=== PATIENT | male | born 1990 | race Caucasian/White ===

== ENCOUNTER 2023-07-22 17:01 | Inpatient (IN) | payer BC ==
[~2023-07-22] VITALS: Ht 175.3 cm; Wt 121.1 kg
[2023-07-22 17:26] VITALS: BP 96/67; PULSE 114; RESP 24; TEMP 99.2; O2SAT 98
[2023-07-22] MEDS: NACL 0.9% 1,000 ML IV SCH (18:41)
[2023-07-22 18:45] LABS: BASOPHILS % (AUTO) 0.1 % (0.0-2.0); HEMATOCRIT 33.2 % (36-52); HEMOGLOBIN 11.6 g/dL (12.0-18.0); LYMPHOCYTES # (AUTO) 0.9 K/uL (2.0-11.5); LYMPHOCYTES % (AUTO) 23.5 % (20.5-51.1); MEAN CORPUSCULAR HEMOGLOBIN 28 pg (27-31); MEAN CORPUSCULAR HGB CONC 35 g/dL (33-37); MEAN CORPUSCULAR VOLUME 78.9 fL (80-94); MONOCYTES # (AUTO) 0.4 K/uL (0.8-1.0); MONOCYTES % (AUTO) 9.6 % (1.7-9.3); NEUTROPHILS # (AUTO) 2.7 K/uL (1.8-7.7); NEUTROPHILS % (AUTO) 66.8 % (42.2-75.2); PLATELET COUNT (AUTO) 259 K/uL (140-450); RED CELL DISTRIBUTION WIDTH 13.1 % (11.6-13.7)
[2023-07-22 19:02] LABS: INR 1.15 (0.8-1.2); PARTIAL THROMBOPLASTIN TIME 31.4 secs (22-35.6)
[2023-07-22 19:19] LABS: ALBUMIN 2.9 g/dL (3.4-5.0); BILIRUBIN,DIRECT 0.1 mg/dL (0.0-0.3); TOTAL BILIRUBIN 0.4 mg/dL (0.0-1.0); TOTAL PROTEIN, SERUM 7.3 g/dL (6.4-8.2)
[2023-07-22 19:29] LABS: ANION GAP 13.2 (8-16); CARBON DIOXIDE 26.1 mmol/L (21-32); CREATININE 1.2 mg/dL (0.6-1.3); POTASSIUM 3.3 mmol/L (3.5-5.1)
[2023-07-22 19:51] LABS: CREATINE KINASE, TOTAL 916 U/L (39-308)
[2023-07-22 19:57] LABS: APPEARANCE,URINE CLEAR (CLEAR); BILIRUBIN,URINE 2+ (NEGATIVE); BLOOD, URINE NEGATIVE (NEGATIVE); LEUKOCYTE ESTERASE ,URINE TRACE (NEGATIVE); NITRITE, URINE POSITIVE (NEGATIVE); PH,URINE 6.5 (5.0-9.0); PROTEIN,URINE 2+ (NEGATIVE); UGLUCOSE TRACE (NEGATIVE); UROBILINOGEN,URINE 0.2 EU/dL (0.2 - 1)
[2023-07-22 19:58] LABS: COLOR,URINE ORANGE (YELLOW)
[2023-07-22 20:00] LABS: BACTERIA,URINE FEW /HPF (None Seen); ICTOTEST NEGATIVE (NEGATIVE); RBC,URINE 0-5 /HPF (0-5); SQUAMOUS EPITHELIAL CELL,UR 0-3 (FEW) /LPF (0-3 (FEW))
[2023-07-22] MEDS ORDERED: MORPHINE SULFATE 4 MG/ML SYR IVP PRN (21:20)
[2023-07-22] MEDS ORDERED: ACETAMINOPHEN 325 MG TAB PO PRN (21:20)
[2023-07-22] MEDS: DEXT 5% / NACL 0.45% 1,000 ML IV SCH (21:54)
[2023-07-22] MEDS: LEVOFLOXACIN 250 MG/D5 PREMIX 50 ML IV SCH (21:55)
[2023-07-22] MEDS ORDERED: METR-520 PO (22:39)
[2023-07-22] MEDS ORDERED: FLONAS NS (22:39)
[2023-07-22] MEDS ORDERED: ALBU3SOL28 IH (22:39)
[2023-07-22] MEDS ORDERED: LACT1CAP71 PO (22:39)
[2023-07-22 22:57] VITALS: PULSE 118
[2023-07-22 23:07] VITALS: BP 97/54; PULSE 100; RESP 20; TEMP 98.2; O2SAT 96
[2023-07-22 23:22] VITALS: PULSE 100; RESP 20; O2SAT 96
[2023-07-22 23:55] VITALS: PULSE 111
[2023-07-23] VITALS (7 sets, daily range): BP systolic 102–118; BP diastolic 64–69; PULSE 74–102; RESP 17–20; TEMP 98–99.7; O2SAT 95–98
[2023-07-23] MEDS: MELATONIN 3 MG TAB PO ONE (00:55)
[2023-07-23 05:47] LABS: BASOPHILS % (AUTO) 0.4 % (0.0-2.0); HEMATOCRIT 32.4 % (36-52); HEMOGLOBIN 11.2 g/dL (12.0-18.0); LYMPHOCYTES # (AUTO) 1.2 K/uL (2.0-11.5); LYMPHOCYTES % (AUTO) 29.2 % (20.5-51.1); MEAN CORPUSCULAR HEMOGLOBIN 27 pg (27-31); MEAN CORPUSCULAR HGB CONC 35 g/dL (33-37); MEAN CORPUSCULAR VOLUME 79.4 fL (80-94); MONOCYTES # (AUTO) 0.3 K/uL (0.8-1.0); MONOCYTES % (AUTO) 7.4 % (1.7-9.3); NEUTROPHILS # (AUTO) 2.7 K/uL (1.8-7.7); PLATELET COUNT (AUTO) 273 K/uL (140-450); RED BLOOD CELL COUNT(AUTO) 4.08 MIL/uL (4.20-6.10); RED CELL DISTRIBUTION WIDTH 13.2 % (11.6-13.7); WHITE BLOOD COUNT (AUTO) 4.2 K/uL (4.8-10.8)
[2023-07-23 06:19] LABS: ALBUMIN 2.8 g/dL (3.4-5.0); ANION GAP 12.6 (8-16); CALCIUM 8.1 mg/dL (8.5-10.1); CARBON DIOXIDE 26.7 mmol/L (21-32); CREATININE 1.1 mg/dL (0.6-1.3); POTASSIUM 3.3 mmol/L (3.5-5.1); TOTAL BILIRUBIN 0.4 mg/dL (0.0-1.0); TOTAL PROTEIN, SERUM 7.1 g/dL (6.4-8.2)
[2023-07-23] MEDS: POTASSIUM CHLORIDE 10 MEQ TABER PO PRN (09:12)
[2023-07-23] MEDS ORDERED: ONDANSETRON 4 MG/2 ML VIAL IVP PRN (10:50)
[2023-07-23] MEDS ORDERED: MAG SULF 2000 MG/WATER PREMIX 50 ML IV PRN (10:50)
[2023-07-23] MEDS ORDERED: LORazepam 2 MG/ML VIAL IVP PRN (10:50)
[2023-07-23] MEDS ORDERED: POTASSIUM CHLORIDE 10 MEQ TABER PO PRN (10:50)
[2023-07-23] MEDS: ZOLPIDEM 10 MG TAB PO PRN (22:35)
[2023-07-24 05:41] LABS: BASOPHILS % (AUTO) 0.7 % (0.0-2.0); HEMATOCRIT 32.8 % (36-52); HEMOGLOBIN 11.2 g/dL (12.0-18.0); LYMPHOCYTES % (AUTO) 30.2 % (20.5-51.1); MEAN CORPUSCULAR HEMOGLOBIN 28 pg (27-31); MEAN CORPUSCULAR HGB CONC 34 g/dL (33-37); MEAN CORPUSCULAR VOLUME 80.6 fL (80-94); MONOCYTES # (AUTO) 0.3 K/uL (0.8-1.0); MONOCYTES % (AUTO) 9.8 % (1.7-9.3); NEUTROPHILS % (AUTO) 59.3 % (42.2-75.2); PLATELET COUNT (AUTO) 305 K/uL (140-450); RED BLOOD CELL COUNT(AUTO) 4.06 MIL/uL (4.20-6.10); RED CELL DISTRIBUTION WIDTH 13.4 % (11.6-13.7); WHITE BLOOD COUNT (AUTO) 3.3 K/uL (4.8-10.8)
[2023-07-24 06:19] LABS: ALBUMIN 2.6 g/dL (3.4-5.0); ANION GAP 9.4 (8-16); CALCIUM 7.8 mg/dL (8.5-10.1); CARBON DIOXIDE 27.2 mmol/L (21-32); CREATININE 0.9 mg/dL (0.6-1.3); POTASSIUM 3.6 mmol/L (3.5-5.1); TOTAL BILIRUBIN 0.3 mg/dL (0.0-1.0); TOTAL PROTEIN, SERUM 6.8 g/dL (6.4-8.2)
[2023-07-24 08:01] VITALS: BP 112/68; PULSE 114; RESP 18; TEMP 96.8; O2SAT 100
[2023-07-24 08:15] VITALS: TEMP 96.9
[2023-07-24 15:19] VITALS: BP 100/65; PULSE 97; RESP 18; TEMP 97; O2SAT 100
[2023-07-24] MEDS: SODIUM PHOSPHATE 118 ML ENEM RC SCH (19:00)
[2023-07-24 20:00] VITALS: BP 101/63; PULSE 110; RESP 18; TEMP 99.8; O2SAT 97
[2023-07-24] MEDS: HYDROcodone/APAP 5/325 MG 1 TAB TAB PO PRN (20:06)
[2023-07-24] MEDS: SUPREP BOWEL PREP KIT 354 ML SOLN.RECON PO SCH (20:08)
[2023-07-24] MEDS ORDERED: SUPREP BOWEL PREP KIT 354 ML SOLN.RECON PO ONE (23:55)
[2023-07-25] VITALS: BP 114/70; PULSE 86; RESP 18; TEMP 98.8; O2SAT 97
[2023-07-25 04:00] VITALS: BP 96/64; PULSE 78; RESP 16; TEMP 97.8; O2SAT 97
[2023-07-25 06:43] LABS: BASOPHILS % (AUTO) 0.4 % (0.0-2.0); EOSINOPHILS % (AUTO) 0.2 % (0.0-4.0); HEMATOCRIT 32.7 % (36-52); HEMOGLOBIN 11.3 g/dL (12.0-18.0); LYMPHOCYTES # (AUTO) 0.8 K/uL (2.0-11.5); LYMPHOCYTES % (AUTO) 28.4 % (20.5-51.1); MEAN CORPUSCULAR HEMOGLOBIN 28 pg (27-31); MEAN CORPUSCULAR HGB CONC 35 g/dL (33-37); MEAN CORPUSCULAR VOLUME 80.2 fL (80-94); MONOCYTES # (AUTO) 0.2 K/uL (0.8-1.0); MONOCYTES % (AUTO) 8.1 % (1.7-9.3); NEUTROPHILS # (AUTO) 1.8 K/uL (1.8-7.7); NEUTROPHILS % (AUTO) 62.9 % (42.2-75.2); PLATELET COUNT (AUTO) 353 K/uL (140-450); RED BLOOD CELL COUNT(AUTO) 4.08 MIL/uL (4.20-6.10); RED CELL DISTRIBUTION WIDTH 13.5 % (11.6-13.7); WHITE BLOOD COUNT (AUTO) 2.9 K/uL (4.8-10.8)
[2023-07-25 07:34] LABS: ALBUMIN 2.7 g/dL (3.4-5.0); ANION GAP 11.8 (8-16); CALCIUM 8.1 mg/dL (8.5-10.1); CARBON DIOXIDE 24.7 mmol/L (21-32); CREATININE 0.8 mg/dL (0.6-1.3); POTASSIUM 3.5 mmol/L (3.5-5.1); TOTAL BILIRUBIN 0.4 mg/dL (0.0-1.0); TOTAL PROTEIN, SERUM 7.1 g/dL (6.4-8.2)
[2023-07-25 08:00] VITALS: BP 97/56; PULSE 93; RESP 18; TEMP 97.8; O2SAT 94
[2023-07-25] MEDS: fentaNYL citrate 0.05 MG/ML VIAL ONE (08:31)
[2023-07-25] MEDS: MIDAZOLAM 5 MG/5 ML VIAL ONE (08:31)
[2023-07-25] MEDS: LIDOCAINE 2% 100 MG/5 ML UJET TP ONE (08:32)
[2023-07-25] MEDS: fentaNYL citrate 0.05 MG/ML VIAL IVP ONE (08:45)
[2023-07-25] MEDS: MIDAZOLAM 2 MG/2 ML VIAL IVP ONE (08:45)
[2023-07-25] MEDS: MEPERIDINE 25 MG/ML SYR ONE (08:48)
[2023-07-25] MEDS ORDERED: ACYC400T14 PO (10:31)
[2023-07-25] MEDS ORDERED: HYDR-2734 TP (10:31)
[2023-07-25] MEDS ORDERED: DOXY-487 PO (10:31)
[2023-07-25 13:16] VITALS: BP 102/65; PULSE 100; RESP 18; TEMP 98.8
== END 2023-07-25 15:00 | disposition home or self-care (01) | DRG 378 ==
LOC: MED 17:01 → MMU 21:22 → MTU 22:20
PROVIDERS: ADMIT Family Medicine; ATTEND Family Medicine
PROC: 0DBE8ZX Excision of Large Intestine, Via Natural or Artificial Opening Endoscopic, Diagnostic (ICD-10-PCS; principal; 2023-07-25 08:50)
DX: K62.5 Hemorrhage of anus and rectum (principal); E44.0 Moderate protein-calorie malnutrition; N39.0 Urinary tract infection, site not specified; R65.10 Systemic inflammatory response syndrome (SIRS) of non-infectious origin without acute organ dysfunction; K62.89 Other specified diseases of anus and rectum; Z79.899 Other long term (current) drug therapy; Z68.39 Body mass index [BMI] 39.0-39.9, adult
CPT/HCPCS: 36415; 80048; 80053; 80076; 81001; 82550; 82553; 83605; 84484; 85025; 85610; 85730; 86886; 86900; 86901; 87040; 87081; 87086; 87491; 88305; 93005; 96360; 99291; J1956; J2175; J2250; J3010; J7030